=== PATIENT | female | born 2000 | race Caucasian/White ===

== ENCOUNTER 2025-01-12 22:14 | Inpatient (IN) | payer OTHER ==
[~2025-01-12] VITALS: Ht 152.4 cm; Wt 72.6 kg
[2025-01-12 23:20] LABS: HEMOGLOBIN 8.6 g/dl (12.0-15.5); MEAN CORPUSCULAR HEMOGLOBIN 23.7 pg (27.0-33.0); MEAN CORPUSCULAR HGB CONC 31.9 g/dl (32.0-36.5); MEAN CORPUSCULAR VOLUME 74.4 fl (80.0-96.0); PLATELET COUNT, AUTOMATED 268 10^3/uL (150-450); RED BLOOD COUNT 3.63 10^6/uL (4.00-5.40); WHITE BLOOD COUNT 9.1 10^3/uL (4.0-10.0)
[2025-01-12 23:23] LABS: AMPHETAMINES LEVEL URINE NEGATIVE (NEGATIVE); BARBITURATES URINE NEGATIVE (NEGATIVE); BENZODIAZEPINES URINE NEGATIVE (NEGATIVE); COCAINE METABOLITE URINE NEGATIVE (NEGATIVE); METHADONE URINE NEGATIVE (NEGATIVE)
[2025-01-12 23:24] LABS: CANNABINOIDS URINE NEGATIVE (NEGATIVE); OPIATES URINE NEGATIVE (NEGATIVE); PHENCYCLIDINE URINE NEGATIVE (NEGATIVE)
[2025-01-12 23:43] LABS: ETHYL ALCOHOL (ETHANOL) < 0.003 % (0.000-0.010)
[2025-01-12 23:44] LABS: SALICYLATE LEVEL < 3.0 MG/DL (<30)
[2025-01-12 23:47] LABS: THYROID STIMULATING HORMONE 3.339 uIU/ML (0.55-4.78)
[2025-01-13 00:05] LABS: ALBUMIN 3.1 G/DL (3.2-5.2); ALKALINE PHOSPHATASE 71 U/L (35-104); ALT/SGPT 21 U/L (7.0-40); AST/SGOT 29 U/L (<34); BILIRUBIN,DIRECT < 0.1 MG/DL (<0.4); BILIRUBIN,TOTAL 0.4 MG/DL (0.3-1.2); BLOOD UREA NITROGEN < 5 MG/DL (9-23); CALCIUM LEVEL 9.4 MG/DL (8.5-10.1); CARBON DIOXIDE LEVEL 24 MMOL/L (20-31); CHLORIDE LEVEL 107 MMOL/L (98-107); CREATININE FOR GFR 0.51 MG/DL (0.55-1.30); GLOMERULAR FILTRATION RATE > 90.0 (>60); GLUCOSE, FASTING 91 MG/DL (60-100); HCG, SERUM QUANTITATIVE 17916.5 MIU/ML (<4.2); POTASSIUM SERUM 3.7 MMOL/L (3.5-5.1); SODIUM LEVEL 140 MMOL/L (136-145); TOTAL PROTEIN 6.7 G/DL (5.7-8.2)
[2025-01-13] MEDS ORDERED: ASPI-615 PO (01:05)
[2025-01-13] MEDS ORDERED: MULTTAB20 PO (01:05)
[2025-01-13] MEDS ORDERED: FERR1TAB8 PO (01:05)
[2025-01-13] MEDS ORDERED: HOME MED LIST COMPLETE! XX SCH (01:05)
[2025-01-13] MEDS ORDERED: MAALOX 30 ML SUSP *UDC PO PRN (16:00)
[2025-01-13] MEDS ORDERED: MOM 30ML SUSPENSION UDC PO PRN (16:00)
[2025-01-13 17:13] VITALS: BP 133/60; TEMP 98.2; O2SAT 99
[2025-01-13] MEDS: ACETAMINOPHEN 325 MG TAB PO PRN (17:46)
[2025-01-13] MEDS: PRENATAL VITAMINS CHEWABLE TABLET PO SCH (20:22)
[2025-01-13] MEDS ORDERED: MELATONIN 6 MG PO PRN (20:50)
[2025-01-13] MEDS: diphenhydrAMINE 25MG CAP PO PRN (22:07)
[2025-01-14 06:42] VITALS: BP 116/54; TEMP 97.3; O2SAT 98
[2025-01-14] MEDS: NICOTINE 21MG/24HR 1 EA TRANSDERMAL TD SCH (08:05)
[2025-01-14] MEDS: CEPACOL LOZENGE PO PRN (09:21)
[2025-01-14] MEDS: SERTRALINE HCL 25 MG TABLET PO SCH (11:18)
[2025-01-14] MEDS: FERROUS SULFATE 325MG TAB PO SCH (13:10)
[2025-01-14 15:36] VITALS: BP 128/60; TEMP 97.3; O2SAT 95
[2025-01-15 06:26] VITALS: BP 131/60; TEMP 96.3; O2SAT 99
[2025-01-15 14:18] VITALS: BP 135/56; TEMP 97.3; O2SAT 99
[2025-01-16 06:50] VITALS: BP 119/59; TEMP 97; O2SAT 97
[2025-01-16] MEDS ORDERED: SERT25TA21 PO (08:23)
[2025-01-16] MEDS ORDERED: DIPH-435 PO (08:23)
== END 2025-01-16 11:22 | disposition home or self-care (01) | DRG 832 ==
LOC: M ED 22:14 → M ED INP 01-13 11:51 → M PSY 01-13 13:00
PROVIDERS: ADMIT Psychiatry & Neurology Psychiatry; ATTEND Psychiatry & Neurology Psychiatry
DX: O99.342 Other mental disorders complicating pregnancy, second trimester (principal); R45.851 Suicidal ideations; F41.1 Generalized anxiety disorder; F32.A Depression, unspecified; F60.3 Borderline personality disorder; F31.9 Bipolar disorder, unspecified; Z3A.22 22 weeks gestation of pregnancy; Z62.810 Personal history of physical and sexual abuse in childhood; D50.9 Iron deficiency anemia, unspecified; O99.012 Anemia complicating pregnancy, second trimester

== ENCOUNTER → 2025-03-13 | Outpatient (CLI) | payer OTHER ==
[~2025-03-13] MED LIST: ASPI-615 PO; DIPH-435 PO; FERR1TAB8 PO; MULTTAB20 PO; SERT25TA21 PO
[2025-03-13 17:30] LABS: HEMATOCRIT 27.9 % (36.0-47.0); HEMOGLOBIN 8.2 g/dl (12.0-15.5); MEAN CORPUSCULAR HEMOGLOBIN 21.5 pg (27.0-33.0); MEAN CORPUSCULAR HGB CONC 29.4 g/dl (32.0-36.5); MEAN CORPUSCULAR VOLUME 73.2 fl (80.0-96.0); PLATELET COUNT, AUTOMATED 248 10^3/uL (150-450); RED BLOOD COUNT 3.81 10^6/uL (4.00-5.40); WHITE BLOOD COUNT 7.7 10^3/uL (4.0-10.0)
[2025-03-13 17:55] LABS: GLUCOSE CHALLENGE TEST 1 HOUR 181 MG/DL (LESS THAN 140)
[2025-03-13 17:58] LABS: IRON (FE) 16 UG/DL (50-170); TOTAL IRON BINDING CAPACITY 526 UG/DL (250-425)
[2025-03-13 18:01] LABS: FERRITIN 3.2 NG/ML (7.3-270.7)
[2025-03-13 18:28] LABS: Trichomonas vaginalis (AMP) NOT DETECTED (NEGATIVE)
[2025-03-13 18:31] LABS: HIV 1&2 SCREEN NEGATIVE (NEGATIVE)
[2025-03-13 18:39] LABS: HEPATITIS C VIRUS ABY INDEX 0.04 INDEX (<0.8)
[2025-03-13 18:51] LABS: GC DNA AMPLIFICATION NEGATIVE (NEGATIVE)
== END ==
LOC: M PLALAB 14:16
PROVIDERS: ATTEND Obstetrics & Gynecology
DX: Z34.93 Encounter for supervision of normal pregnancy, unspecified, third trimester (principal)

== ENCOUNTER → 2025-04-17 | Outpatient (CLI) | payer OTHER ==
[2025-04-17 18:14] LABS: ALT/SGPT 21 U/L (7.0-40); AST/SGOT 25 U/L (<34); CALCIUM LEVEL 9.3 MG/DL (8.5-10.1); CARBON DIOXIDE LEVEL 26 MMOL/L (20-31); CHLORIDE LEVEL 104 MMOL/L (98-107); CREATININE FOR GFR 0.67 MG/DL (0.55-1.30); GLOMERULAR FILTRATION RATE > 90.0 (>60); POTASSIUM SERUM 4.1 MMOL/L (3.5-5.1); SODIUM LEVEL 140 MMOL/L (136-145)
[2025-04-17 18:15] LABS: PLATELET COUNT, AUTOMATED 232 10^3/uL (150-450)
[2025-04-17 18:20] LABS: TOTAL PROTEIN,RANDOM URINE 6.8 MG/DL (0.0-14.0)
== END ==
LOC: M PLALAB 15:09
PROVIDERS: ATTEND Obstetrics & Gynecology
DX: Z34.93 Encounter for supervision of normal pregnancy, unspecified, third trimester (principal)

== ENCOUNTER 2025-05-01 14:32 | Outpatient (CLI) | payer OTHER ==
[~2025-05-01] VITALS: Ht 152.4 cm; Wt 75.9 kg
[~2025-05-01 14:32] MED LIST changes: +ALBUTEROL SULFATE 2.5 MG/0.5 ML INH CONCENTRATE NEB SOLN INH PRN; +EPINEPHrine INJ 1 MG/ML 1ML AMP IM PRN; +diphenhydrAMINE 50 MG/ML VIAL IV PRN
[2025-05-01 15:10] VITALS: BP 148/64; O2SAT 99
[2025-05-01] MEDS: FERRIC CARBOXYMALTOSE 750 MG (VIAL MATE) IN 100ML NS IV ONE (15:20)
[2025-05-01 15:40] VITALS: BP 133/63; O2SAT 100
== END 2025-05-01 15:50 ==
LOC: M INFU 14:32
PROVIDERS: ATTEND Obstetrics & Gynecology
DX: O99.019 Anemia complicating pregnancy, unspecified trimester (principal)
CPT/HCPCS: 96365; J1439

== ENCOUNTER 2025-05-05 05:25 | Inpatient (IN) | payer OTHER ==
[2025-05-05] VITALS (9 sets, daily range): BP systolic 102–132; BP diastolic 57–66; TEMP 97.3; O2SAT 97–99
[~2025-05-05] VITALS: Ht 152.4 cm; Wt 75.7 kg
[~2025-05-05 05:25] MED LIST changes: -ALBUTEROL SULFATE 2.5 MG/0.5 ML INH CONCENTRATE NEB SOLN INH PRN; -EPINEPHrine INJ 1 MG/ML 1ML AMP IM PRN; -diphenhydrAMINE 50 MG/ML VIAL IV PRN
[2025-05-05 06:22] LABS: PLATELET COUNT, AUTOMATED 240 10^3/uL (150-450)
[2025-05-05] MEDS ORDERED: ZOLO25TA PO (06:36)
[2025-05-05] MEDS ORDERED: ACET-897 PO (06:37)
[2025-05-05] MEDS: LR 1,000 ML IV ONE (07:04)
[2025-05-05] MEDS: LR 1,000 ML IV SCH (07:05)
[2025-05-05] MEDS ORDERED: MORPHINE PRES-FREE INJ 10 MG/10 ML VIAL As Ordered ONE (07:17)
[2025-05-05] MEDS ORDERED: ONDANSETRON 4MG 2ML VIAL As Ordered ONE (07:18)
[2025-05-05] MEDS ORDERED: KETOROLAC 30 MG/ML 1 ML VIAL As Ordered ONE (07:18)
[2025-05-05] MEDS ORDERED: dexAMETHasone 4 MG/ML 1 ML VIAL As Ordered ONE (07:19)
[2025-05-05] MEDS ORDERED: OXYTOCIN 30UNITS IN 0.9% NaCl 500ML IV BAG As Ordered ONE (07:19)
[2025-05-05] MEDS ORDERED: ACETAMINOPHEN 1000MG/100ML IV BAG As Ordered ONE (07:19)
[2025-05-05 07:23] LABS: HIV 1&2 SCREEN NEGATIVE (NEGATIVE)
[2025-05-05] MEDS: LACTATED RINGER'S 1000 ML IV STA (07:32)
[2025-05-05] MEDS: ceFAZolin SODIUM 2 GM in DEXTROSE 5% (D5W) ADV/MINI-BAG 50 ML IV ONE (07:34)
[2025-05-05] MEDS: BICITRA 30 ML SOLN UDC PO ONE (07:34)
[2025-05-05] MEDS ORDERED: LR 1,000 ML IV SCH ×2 (07:35→09:10)
[2025-05-05] MEDS ORDERED: OXYTOCIN DRIP 30 UNITS in IV 1 EA IV PRN (07:35)
[2025-05-05] MEDS ORDERED: METHYLERGONOVINE MALEATE 0.2 MG/ML 1 ML VIAL IM PRN (07:35)
[2025-05-05] MEDS ORDERED: TRANEXAMIC ACID INJection 1,000 MG in NS 100 ML IV PRN (07:35)
[2025-05-05] MEDS ORDERED: CARBOPROST TROMETHAMINE 250 MCG/ML AMP IM PRN (07:35)
[2025-05-05] MEDS ORDERED: LIDOCAINE 1% MDV 20 ML VIAL INFIL PRN (07:35)
[2025-05-05] MEDS ORDERED: MIDAZOLAM INJ 2 MG/2 ML VIAL As Ordered ONE (08:40)
[2025-05-05 08:58] LABS: CORD GAS ABE A -1.8; CORD GAS HCO3 A 26.2 MMOL/L; CORD GAS O2 SAT A 45.2 %; CORD GAS PCO2 A 57.1 mmHg; CORD GAS PH A 7.279 UNITS; CORD GAS PO2 A 22.2 mmHg; CORD GAS SBC A 21.6 MMOL/L; CORD GAS TCO2 A 27.9 MMOL/L
[2025-05-05 08:59] LABS: CORD GAS ABE V -2.5; CORD GAS HCO3 V 23.0 MMOL/L; CORD GAS O2 SAT V 81.8 %; CORD GAS PCO2 V 42.4 mmHg; CORD GAS PH V 7.353 UNITS; CORD GAS PO2 V 37.8 mmHg; CORD GAS SBC V 22.0 MMOL/L; CORD GAS TCO2 V 24.3 MMOL/L
[2025-05-05] MEDS: OXYTOCIN DRIP 30 UNITS in IV 1 EA IV SCH (09:10)
[2025-05-05] MEDS ORDERED: RHOGAM 300MCG (1500IU) INJ IM SCH (09:10)
[2025-05-05] MEDS ORDERED: MORPHINE 4 MG/ML 1 ML VIAL IV PRN (09:10)
[2025-05-05] MEDS ORDERED: ONDANSETRON 4MG 2ML VIAL IV PRN ×3 (09:10→12:20)
[2025-05-05] MEDS ORDERED: CALCIUM CARBONATE 500 MG CHEW U/D PO PRN (09:10)
[2025-05-05] MEDS ORDERED: SIMETHICONE 80MG CHEW TAB PO PRN (09:10)
[2025-05-05] MEDS ORDERED: ANUSOL HC CREAM 30 GM TOP PRN (09:10)
[2025-05-05] MEDS ORDERED: PERCOCET PO (09:21)
[2025-05-05] MEDS ORDERED: COLA100C5 PO (09:21)
[2025-05-05] MEDS ORDERED: IBUP80TA PO (09:21)
[2025-05-05] MEDS: SLF 3 ML SYR IV SCH (12:20)
[2025-05-05] MEDS ORDERED: NALOXONE INJ 0.4 MG/1 ML VIAL IV PRN ×2 (12:20)
[2025-05-05] MEDS ORDERED: **NOTE PATIENT COMMENT** MISC XX SCH (12:20)
[2025-05-05] MEDS ORDERED: HYDROMORPHONE HCL 0.5 MG/0.5 ML SYRINGE IV PRN (12:20)
[2025-05-05] MEDS ORDERED: MEPERIDINE 25 MG/ML 1 ML VIAL IV PRN (12:20)
[2025-05-05] MEDS: diphenhydrAMINE 50 MG/ML VIAL IV PRN (12:36)
[2025-05-05] MEDS: KETOROLAC 30 MG/ML 1 ML VIAL IV SCH (15:08)
[2025-05-05] MEDS: SERTRALINE HCL 25 MG TABLET PO SCH (20:19)
[2025-05-05] MEDS: DOCUSATE SODIUM 100 MG CAPSULE PO SCH (20:19)
[2025-05-06] VITALS (10 sets, daily range): BP systolic 108–131; BP diastolic 54–86; TEMP 97–98.3; O2SAT 96–100
[2025-05-06] MEDS: ACETAMINOPHEN 500 MG TAB PO PRN (07:48)
[2025-05-06] MEDS: PRENATAL VITAMINS CHEWABLE TABLET PO SCH (07:49)
[2025-05-06] MEDS ORDERED: HOME MED LIST COMPLETE! XX SCH (07:55)
[2025-05-06] MEDS: PERCOCET 5MG/325MG TAB PO PRN ×2 (09:12→20:32)
[2025-05-06 10:00] LABS: PLATELET COUNT, AUTOMATED 177 10^3/uL (150-450)
[2025-05-06] MEDS: IBUPROFEN 800 MG TAB PO SCH (11:08)
[2025-05-07 02:00] VITALS: BP 124/68; O2SAT 98
[2025-05-07 06:00] VITALS: BP 119/58; O2SAT 97
[2025-05-07] MEDS: MEASLES,MUMPS,RUBELLA VACCINE INJ (MMR-II) SC.IMMUN ONE (09:00)
[2025-05-07] MEDS: TETANUS/DIPHTH/ACEL. PERTUSSIS 0.5 ML SYR IM.IMMUN ONE (12:19)
[2025-05-07] MEDS ORDERED: IBUP80TA PO (13:03)
[2025-05-07] MEDS ORDERED: ACET-683 PO (13:03)
== END 2025-05-07 14:20 | disposition home or self-care (01) | DRG 785 ==
LOC: M LDI 05:25 → M OBS 10:51
PROVIDERS: ADMIT Obstetrics & Gynecology; ATTEND Obstetrics & Gynecology
PROC: 0UB70ZZ Excision of Bilateral Fallopian Tubes, Open Approach (ICD-10-PCS; 2025-05-05)
PROC: 10D00Z1 Extraction of Products of Conception, Low, Open Approach (ICD-10-PCS; principal; 2025-05-05 07:30)
PROC: 30233N1 Transfusion of Nonautologous Red Blood Cells into Peripheral Vein, Percutaneous Approach (ICD-10-PCS; 2025-05-06)
DX: O34.211 Maternal care for low transverse scar from previous cesarean delivery (principal); Z37.0 Single live birth; Z3A.38 38 weeks gestation of pregnancy; Z30.2 Encounter for sterilization; O99.02 Anemia complicating childbirth; D50.9 Iron deficiency anemia, unspecified